=== PATIENT | male | born 1940 | race African-American/Black ===

== ENCOUNTER 2019-07-19 15:19 | Inpatient (IN) | payer BC, OTHER ==
[~2019-07-19] VITALS: Ht 180.3 cm; Wt 72.0 kg
[2019-07-19] MEDS ORDERED: SODIUM CHLORIDE 0.9% 500 ML IV ONE (15:48)
[2019-07-19 16:57] LABS: Basophils # (auto) 0 uL; Basophils % (auto) 0.2 % (0.0-2.0); Eosinophils # (auto) 0 uL; Eosinophils % (auto) 0.1 % (0.0-7.0); Hematocrit 40.2 % (41.0-53.0); Hemoglobin 13.4 g/dL (13.5-17.5); Lymphocytes # (auto) 1.1 uL; Lymphocytes % (auto) 12.8 % (10.0-50.0); Mean Corpuscular Hemoglobin 30.9 pg (28.0-32.0); Mean Corpuscular Hgb Conc. 33.4 g/dL (32.0-36.0); Mean Corpuscular Volume 92.5 fL (80.0-100.0); Monocytes # (auto) 0.8 uL; Neutrophils # (auto) 6.6 uL; Neutrophils % (auto) 77.9 % (37.0-80.0); Platelet Count (auto) 159 10^3/uL (140-450); Red Blood Cells 4.35 10^6/uL (4.5-5.90); Red Cell Distribution Width 12.8 % (11.8-14.3); White Blood Cell 8.4 10^3/uL (4.4-10.8)
[2019-07-19 17:19] LABS: Albumin 3.4 g/dL (3.4-5.0); Calcium 8.5 mg/dL (8.5-10.1); Potassium 3.7 mmol/L (3.5-5.1)
[2019-07-19 17:28] LABS: BUN/Creatinine Ratio 16.5; Bilirubin, Total 1.3 mg/dL (0.2-1.0); Total Protein 6.5 g/dL (6.4-8.2)
[2019-07-19 20:32] LABS: Urine Bacteria FEW /hpf (None Seen); Urine Blood 2+ /uL (Negative); Urine Mucus FEW (None Seen); Urine Specific Gravity 1.028 (1.001-1.035); Urine WBC 1 /hpf (0 - 3)
[2019-07-19] MEDS ORDERED: ONDANSETRON HCL 4 MG/2 ML VIAL IV PRN (21:00)
[2019-07-19] MEDS ORDERED: TEMAZEPAM 15 MG CAP PO PRN (21:00)
[2019-07-19] MEDS ORDERED: HYDROcodone-ACET 5/325MG TAB PO PRN (21:00)
[2019-07-19] MEDS ORDERED: ACETAMINOPHEN 325 MG TAB PO PRN (21:00)
[2019-07-19] MEDS ORDERED: MORPHINE SULF INJ 2 MG/ML SYRINGE 1ML IV PRN (21:30)
[2019-07-19] MEDS ORDERED: NITROGLYCERIN 0.4 MG SL TAB SL PRN (21:30)
[2019-07-19] MEDS: ATORVASTATIN 20 MG TAB PO SCH (23:05)
[2019-07-19] MEDS: FAMOTIDINE 20 MG TAB PO SCH (23:05)
--- NOTE | 2019-07-19 23:20 | NUR ---
Telemetry admit from [facility]UNC[facility] SIM admitted to Telemetry unit after SBAR received. Patient oriented to Hortensia Harrison, primary RN, unit, room, bed, and unit policies regarding patient care and visiting hours. Patient now on continuous telemetry monitoring, tele box # [50] and telemetry reading on arrival to unit is [SR 65]. Patient weighed by bedscale and encouraged to call if they need something. All questions and concerns addressed, patient verbalized understanding. Note: PATIENT ALERT AND ORIENTED X 2, DENIED PAIN AT THIS TIME. 2200 MEDICATION GIVEN ORDERED. PATIENT SWALLOWED WELL. NO S/S OF ASPIRATION NOTED. BED IN LOWEST POSITION WITH SIDE RAILS UP X 2. CALL HUNT WITH REACH. ALARM ON. CONTINUE TO MONITOR FOR CHANGES Q1H AND PRN. Addendum: 07/20/19 at 0100 by Hortensia Harrison RN telemetry reading on arrival to unit is A FIB 65
[2019-07-19] MEDS ORDERED: ATOR10TA52 PO (23:51)
[2019-07-19] MEDS ORDERED: LOSA-39 PO (23:51)
[2019-07-19] MEDS ORDERED: METO-75 PO (23:51)
--- NOTE | 2019-07-20 00:09 | NUR ---
PATIENT'S HR DOWN TO 40S, CHECKED PATIENT. NO S/S OF SOB AND DISTRESS NOTED. PATIENT DENIED CHEST PAIN AND ANY CHEST DISCOMFORT, AFTER PATIENT WOKE UP, HR BACK TO 60S. CONTINUE TO MONITOR.
--- NOTE | 2019-07-20 04:24 | NUR ---
PATIENT SLEEPING. NO S/S OF DISTRESS NOTED. BREATHING EVEN AND UNLABORED. HR 40S WHILE SLEEPING. WILL PASS IT TO DAY SHIFT RN. CONTINUE TO MONITOR.
[2019-07-20 05:17] LABS: Basophils # (auto) 0 uL; Basophils % (auto) 0.1 % (0.0-2.0); Eosinophils # (auto) 0 uL; Eosinophils % (auto) 0.2 % (0.0-7.0); Hematocrit 38.7 % (41.0-53.0); Hemoglobin 13.2 g/dL (13.5-17.5); Lymphocytes # (auto) 1.2 uL; Lymphocytes % (auto) 19.2 % (10.0-50.0); Mean Corpuscular Hemoglobin 31.4 pg (28.0-32.0); Mean Corpuscular Volume 92.3 fL (80.0-100.0); Monocytes # (auto) 0.5 uL; Monocytes % (auto) 8.4 % (0.0-12.0); Neutrophils # (auto) 4.3 uL; Neutrophils % (auto) 72.1 % (37.0-80.0); Platelet Count (auto) 151 10^3/uL (140-450); Red Cell Distribution Width 12.7 % (11.8-14.3)
[2019-07-20 05:40] LABS: Potassium 3.8 mmol/L (3.5-5.1)
[2019-07-20 05:41] VITALS: BP 136/75
[2019-07-20 05:50] LABS: BUN/Creatinine Ratio 16.4; Calcium 8.7 mg/dL (8.5-10.1)
--- NOTE | 2019-07-20 07:19 | NUR ---
Opening Shift Note Assumed care of patient, resting in bed with eyes closed. No S/S of distress/SOB or pain. Bed is set in lowest locked position with side rails up x 2 for safety and call light is within reach, will continue to monitor for changes Q1hr and PRN.
[2019-07-20 08:10] VITALS: BP 116/56
[2019-07-20 09:00] VITALS: BP 116/56
[2019-07-20] MEDS: ENOXAPARIN SOD 40 MG/0.4 ML SYRINGE SC SCH (09:59)
[2019-07-20] MEDS ORDERED: ASPirin 81 mg TAB PO SCH (10:00)
[2019-07-20] MEDS: LOSARTAN POTASSIUM 25 MG TAB PO SCH (10:00)
[2019-07-20] MEDS: FAMOTIDINE 20 MG TAB PO SCH ×2 (10:01→22:05)
[2019-07-20] MEDS ORDERED: GADOTERIDOL 279.3mg/mL 20ml Vial IV ONE (12:29)
[2019-07-20 13:00] VITALS: BP 124/59
[2019-07-20] MEDS: SODIUM CHLORIDE 0.9% 1,000 ML IV SCH ×2 (13:57→20:20)
--- NOTE | 2019-07-20 15:27 | NUR ---
assessment re: otoniel consult lives alone and needs assistance Patient is a 78 year old male who is answering appropriately. Prior to admission patient lived at a room and board and functioned with assistance of Mika Bates [phone] who was at bedside. Per Mika he drives and does patients shopping for him. Mika also help patient with any home needs. Patients PCP is Dr Connors. Patient informed me he feels safe returning home on discharge. Mika will transport patient home on discharge. Patients post discharge needs to be determined prior to discharge. I informed patient he has a right to speak to a social and political studies professor regarding all care. I informed patient he has a right to participate in any and all discharge planning. Patient does not have a POA and advanced directive. I have offered patient information on POA and advanced directives. I informed the patient the advantages and benefits of having an Advanced Directive. Patient verbalized understanding and agreed to discharge plan. Addendum: 07/20/19 at 1537 by María Elena ZENG Amended: Links added.
[2019-07-20 17:26] VITALS: BP 129/66
--- NOTE | 2019-07-20 19:22 | NUR ---
Endorsed care to NOC RN.
--- NOTE | 2019-07-20 19:35 | NUR ---
RECEIVED PATIENT FROM DAY SHIFT RN. PATIENT RESTING IN BED. NO S/S OF DISTRESS NOTED. DENIED PAIN FOR NOW. IV INFILTRATED AT . WILL COME BACK FOR A NEW IV ACCESS LATER. POC INSTRUCTED AND ENCOURAGED PATIENT TO CALL FOR MEDICAL INSURANCE CLAIMS PROCESSOR IF NEEDED. BED IN LOWEST POSITION WITH SIDE RAILS UP X 2. CALL HUNT WITHIN REACH. ALARM ON. CONTINUE TO MONITOR FOR CHANGES Q1H AND PRN.
--- NOTE | 2019-07-20 20:23 | NUR ---
MD HANNA AT BEDSIDE. CHANGED NS TO 70ML/HR. CONTINUE CARE.
[2019-07-20] MEDS ORDERED: SODIUM CHLORIDE 0.9% 1,000 ML IV SCH (20:30)
--- NOTE | 2019-07-20 21:00 | NUR ---
MD SPANN AT BEDSIDE.
[2019-07-20 22:00] VITALS: BP 120/61
[2019-07-20] MEDS: ATORVASTATIN 20 MG TAB PO SCH (22:05)
--- NOTE | 2019-07-20 22:14 | NUR ---
ORAL MEDICATION GIVEN ORDERED. PATIENT SWALLOWED WELL. NO S/S OF ASPIRATION NOTED. CONTINUE TO MONITOR.
--- NOTE | 2019-07-20 22:28 | NUR ---
IV insertion IV access obtained, via clean sterile technique by inserting [22] gauge catheter at [RFA] after [1] attempt(s). IV secured properly. No trauma to site. Patient tolerated well. IV removal IV DC'd with clean sterile technique, catheter fully intact. Pressure dressing applied to site. Patient tolerated well. NOTE:
--- NOTE | 2019-07-21 01:29 | NUR ---
PATIENT TRYING TO GET OUT OF BED SEVERAL TIMES, AND PULLED OUT HIS TELE BOX. REORIENTED PATIENT AND MEDICATED PATIENT TO CALM HIM DOWN. CONTINUE TO MONITOR.
--- NOTE | 2019-07-21 03:18 | NUR ---
PATIENT SLEEPING. NO S/S OF DISTRESS NOTED. BREATHING EVEN AND UNLABORED. CONTINUE TO MONITOR.
[2019-07-21 05:33] VITALS: BP 146/54
--- NOTE | 2019-07-21 07:11 | NUR ---
OPENING SHIFT NOTES Assumed care of patient from jewelry sorter RN. Patient is alert and oriented x2, no signs of distress noted. Patient was oriented to time and place, updated on the plan of care and verbalized understanding. Bed is locked, in the lowest position, side rails up x2 and call light is in reach. Patient was encouraged to call for assistance.
[2019-07-21 09:00] VITALS: BP 145/67
[2019-07-21] MEDS: ENOXAPARIN SOD 40 MG/0.4 ML SYRINGE SC SCH (09:31)
[2019-07-21] MEDS: FAMOTIDINE 20 MG TAB PO SCH (09:31)
[2019-07-21] MEDS: LOSARTAN POTASSIUM 25 MG TAB PO SCH (09:31)
[2019-07-21] MEDS ORDERED: ASPirin 81 mg TAB PO SCH (10:00)
--- NOTE | 2019-07-21 10:04 | NUR ---
Dr Galvez at bedside New orders received and followed through. Plan of care discussed with patient and friend at bedside. Both verbalized understanding.
--- NOTE | 2019-07-21 10:18 | NUR ---
CONSUMER EXPERIENCE CONSULTANT PAGED Regarding transfer to higher level of care,per Dr Galvez. Awaiting call back.
[2019-07-21] MEDS: SODIUM CHLORIDE 0.9% 1,000 ML IV SCH ×2 (10:30→16:55)
--- NOTE | 2019-07-21 10:40 | NUR ---
physical therapy manager called Updated on orders from Dr. Galvez.
--- NOTE | 2019-07-21 11:29 | NUR ---
PATIENT PULLED OUT IV I walked into the room and patient was sitting on the edge of the bed, IV was on the floor running. I stopped the infusion, Patient stated he "woke up confused and did not know where he was at"
--- NOTE | 2019-07-21 11:45 | NUR ---
I faxed transfer to higher level of care request to [facility].
--- NOTE | 2019-07-21 12:07 | NUR ---
I called [facility] Transfer [facility] [phone] and spoke with Layla regarding the transfer to higher level of care request. I provided her with contact information for Dr. Sherice Galvez and Dr. Rivers as well as the nurse's station. Faxed requested clinical documentation including order to [phone].
--- NOTE | 2019-07-21 12:20 | NUR ---
I called [facility] [phone] to ask about bed availability/possible acceptance of this patient-I was transferred to 3 different people-no one in Admissions at this time-attempted to speak with housetrailer servicer and phone call was cut off.
--- NOTE | 2019-07-21 12:34 | NUR ---
I faxed transfer order, transfer packet and clinical information to [facility] (phone [phone], fax [phone]).
--- NOTE | 2019-07-21 12:37 | NUR ---
EEG- Unable to complete electroencephalogram due to multiple artifacts. Patient was restless, confused, could not follow instructions and pulled out IV. Will attempt again tomorrow morning.
[2019-07-21 12:42] VITALS: BP 146/77
--- NOTE | 2019-07-21 12:42 | NUR ---
IV insertion IV access obtained, via clean sterile technique by inserting 22 gauge catheter at right hand after 3 attempts. IV secured properly. No trauma to site. Patient tolerated well.
--- NOTE | 2019-07-21 12:43 | NUR ---
I called the [facility] Transfer Center ([facility])[phone] and spoke with Malena regarding this request for higher level of care transfer. Provided Malena with contact information for Dr. Sherice Galvez, Dr. Rivers and the nurse's station. Faxed requested clinical documentation including transfer order to [phone].
--- NOTE | 2019-07-21 13:05 | NUR ---
I called [facility] [phone] to request authorization for transfer to higher level of care-was not able to speak with a live person, message stated they are open only Tuesday through Tuesday.
--- NOTE | 2019-07-21 13:09 | NUR ---
I called [facility] ([phone]) and placed them on will call pending transfer to higher level of care.
--- NOTE | 2019-07-21 13:42 | NUR ---
Friend Called After receiving consent from the patient, Mika, patient's friend, was updated on the plan of care and verbalized understanding. All questions answered.
--- NOTE | 2019-07-21 13:44 | NUR ---
I received a call from Layla at the [facility] Transfer Center, she said her neuro-surgeon is accepting this patient-she will call back regarding bed availability. She is faxing me a transfer back agreement form.
--- NOTE | 2019-07-21 14:00 | NUR ---
Called [facility] [phone] to request authorization-unable to speak with a live person.
--- NOTE | 2019-07-21 14:22 | NUR ---
Called [facility] Transfer Center [phone] and spoke with Austin, asked him to re-fax the transfer back agreement.
--- NOTE | 2019-07-21 14:24 | NUR ---
PATIENT SITTING ON THE EDGE OF THE BED ALTERED. Patient was pulling off Tele monitor and saying he did not know what was going on. I reoriented the patient and got him back into bed. Patient is alert and oriented x2. Patient was educated on the plan of care and verbalized understanding. Patient was repositioned, tele leads placed on patient. Bed is locked, in the lowest position, side rails up x3 and call light is in reach. patient was educated on the call light and encouraged to call for assistance. Will continue to monitor.
--- NOTE | 2019-07-21 14:37 | NUR ---
Transfer Back Agreement sent to [facility]-they will contact nurse's station when a bed becomes available. [facility] is on will-call-I relayed this information to nurse Raegan.
--- NOTE | 2019-07-21 14:40 | NUR ---
Call from [employer] [employer] Pro[employer] Patient was accepted at [facility], awaiting bed.
--- NOTE | 2019-07-21 15:26 | NUR ---
Patient ambulated with walker in the henry Patient tolerated well. Addendum: 07/21/19 at 1615 by ОЛЕГ SANDERSON RN RN Wrong Patient
--- NOTE | 2019-07-21 17:10 | NUR ---
SAM FROM [facility] CALLED Patient accepted to room 410 [address]. number for report is . Will call [facility] for transport.
--- NOTE | 2019-07-21 17:18 | NUR ---
Called [facility] FOR TRANSPORT Estimated pickler helper time [phone]. Informed charge and community product specialist.
--- NOTE | 2019-07-21 17:42 | NUR ---
Per patient request Best friend Mika was called and informed of transfer, verbalized understanding.
--- NOTE | 2019-07-21 18:10 | NUR ---
Report called to Carm[facility]
[2019-07-21 19:00] VITALS: BP 145/84
--- NOTE | 2019-07-21 19:12 | NUR ---
CLOSING SHIFT NOTES Care endorsed to rn night RN. No signs of distress noted.
--- NOTE | 2019-07-21 19:34 | NUR ---
Pt being trans to another hosp Order obtained for transfer of DUNCAN BRADY to [facility]. Report called by day Nurse. Report given to EMS transport team. Medication reconciliation form completed and copy given to patient. Transported via [facility] along with copied chart and imaging films/disk and all personal belongings. Tele monitor removed and returned to ICU, Dona youth nutritional monitor was notified. No distress noted on time of departure.
[2019-07-23 10:09] LABS: Folate (Folic Acid) 11.47 ng/mL (5.38-24)
== END 2019-07-21 19:34 | disposition short-term general hospital (02) | DRG 281 ==
LOC: ER 15:19 → EDBD 15:19 → TELE 15:20 → TELE-WESTW 22:36
PROVIDERS: ADMIT Nurse Practitioner; ATTEND Family Medicine
DX: I21.4 Non-ST elevation (NSTEMI) myocardial infarction (principal); M62.82 Rhabdomyolysis; D49.2 Neoplasm of unspecified behavior of bone, soft tissue, and skin; E78.5 Hyperlipidemia, unspecified; F03.90 Unspecified dementia, unspecified severity, without behavioral disturbance, psychotic disturbance, mood disturbance, and anxiety; F17.200 Nicotine dependence, unspecified, uncomplicated; I10 Essential (primary) hypertension; R26.9 Unspecified abnormalities of gait and mobility; Z60.2 Problems related to living alone; W06.XXXA Fall from bed, initial encounter; Z91.81 History of falling; Z86.73 Personal history of transient ischemic attack (TIA), and cerebral infarction without residual deficits
CPT/HCPCS: 36415; 70450; 70553; 71045; 72192; 80048; 80053; 81001; 82550; 82607; 82746; 83735; 83880; 84443; 84484; 85025; 93005; 93306; 97163; G0378